=== PATIENT | female | born 1990 | race Caucasian/White ===

== ENCOUNTER 2022-10-24 14:07 | Emergency (ER) | payer BC ==
[2022-10-24] MEDS ORDERED: Sodium Chloride 0.9% 10 ML Syringe FLUSH PRN (14:14)
[2022-10-24 14:39] LABS: BASOPHILS ABSOLUTE AUTO 0.03 K/mm3 (0.01-0.08); BASOPHILS PERCENT AUTO 0.3 % (0.1-1.2); EOSINOPHILS ABSOLUTE AUTO 0.08 K/mm3 (0.04-0.36); EOSINOPHILS PERCENT AUTO 0.8 (0.7-5.8); HEMATOCRIT 40.4 % (34.1-44.9); HEMOGLOBIN 13.1 gm/dl (11.2-15.7); IMMATURE GRAN ABSOLUTE AUTO 0.03 K/mm3 (0.00-0.10); IMMATURE GRAN PERCENT AUTO 0.3 % (<=1.0); LYMPHOCYTES ABSOLUTE AUTO 1.81 K/mm3 (1.18-3.74); LYMPHOCYTES PERCENT AUTO 19.1 % (19.3-51.7); MEAN CORPUSCULAR HEMOGLOBIN 25.5 pg (25.6-32.2); MEAN CORPUSCULAR HGB CONC 32.4 g/dl (32.2-35.5); MEAN CORPUSCULAR VOLUME 78.8 fl (79.4-94.8); MEAN PLATELET VOLUME 9.2 fl (9.4-12.3); MONOCYTES ABSOLUTE AUTO 0.55 K/mm3 (0.24-0.36); MONOCYTES PERCENT AUTO 5.8 % (4.7-12.5); NEUTROPHILS PERCENT AUTO 73.7 % (34.0-71.1); PLATELET COUNT,PLT 479 K/mm3 (182-369); RED BLOOD CELL COUNT 5.13 M/mm3 (3.98-5.22)
[2022-10-24 16:30] LABS: APPEARANCE,URINE CLEAR (Clear); BILIRUBIN,URINE NEGATIVE (Negative); COLOR,URINE YELLOW (Yellow); GLUCOSE,URINE NEGATIVE (Negative); KETONES,URINE NEGATIVE (Negative); LEUKOCYTE ESTERASE,URINE NEGATIVE (Negative); NITRITE,URINE NEGATIVE (Negative); OCCULT BLOOD,URINE NEGATIVE (Negative); PH,URINE 6.5 (5.0-8.0); PROTEIN,URINE NEGATIVE (Negative); UROBILINOGEN,URINE 0.2 (0.2-1.0)
[2022-10-24 16:36] LABS: BACTERIA,URINE FEW /hpf (FEW); MUCUS,URINE FEW /hpf (FEW); RBC,URINE 0-5 /hpf (0-5); SQUAMOUS EPITHELIAL CELLS,UR 0-5 /hpf (0-5); WBC,URINE 0-5 /hpf (0-5)
== END 2022-10-24 16:41 | disposition home or self-care (01) ==
LOC: JD.ED 14:07
DX: O20.9 Hemorrhage in early pregnancy, unspecified (principal); Z79.899 Other long term (current) drug therapy; Z88.5 Allergy status to narcotic agent; Z88.2 Allergy status to sulfonamides; Z3A.08 8 weeks gestation of pregnancy
CPT/HCPCS: 36415; 76817; 76817-26; 81001; 84702; 85025; 86900; 86901; 99283; 99284

== ENCOUNTER 2024-06-11 19:58 | Inpatient (IN) | payer BC ==
[2024-06-11] MEDS ORDERED: Ondansetron 4 MG/2 ML SDV IVPUSH PRN (20:51)
[2024-06-11] MEDS ORDERED: Sodium Chloride 0.9% 10 ML Syringe FLUSH PRN (20:51)
[2024-06-11] MEDS ORDERED: Lidocaine 1% 50 ML MDV INJECT PRN ×2 (20:51→20:54)
[2024-06-11] MEDS ORDERED: Calcium Carbonate 500 MG Tab.Chew PO PRN (20:51)
[2024-06-11 21:10] LABS: BASOPHILS PERCENT AUTO 0.2 % (0.0-1.0); EOSINOPHILS ABSOLUTE AUTO 0.1 K/mm3 (0.0-0.4); EOSINOPHILS PERCENT AUTO 0.4 % (0.0-6.0); HEMATOCRIT 38.6 % (37.0-47.0); IMMATURE GRAN PERCENT AUTO 0.8 % (0.0-0.4); LYMPHOCYTES ABSOLUTE AUTO 2.5 K/mm3 (1.0-4.8); LYMPHOCYTES PERCENT AUTO 20.4 % (24.0-44.0); MEAN CORPUSCULAR HEMOGLOBIN 26.6 pg (28.0-32.0); MEAN CORPUSCULAR HGB CONC 32.6 g/dl (32.0-36.0); MEAN CORPUSCULAR VOLUME 81.6 fl (83.0-99.0); MEAN PLATELET VOLUME 10.3 fl (9.4-12.3); MONOCYTES PERCENT AUTO 8.1 % (0.0-8.0); NEUTROPHILS ABSOLUTE AUTO 8.6 K/mm3 (1.8-7.7); NEUTROPHILS PERCENT AUTO 70.1 % (41.0-71.0); PLATELET COUNT,PLT 281 K/mm3 (150-400); RED BLOOD CELL COUNT 4.73 M/mm3 (4.10-5.30); WHITE BLOOD CELL COUNT,WBC 12.28 K/mm3 (3.9-11.3)
[2024-06-11 21:11] LABS: HEMOGLOBIN 12.6 gm/dl (12.0-16.0)
[2024-06-12] MEDS: Nalbuphine 10 MG/1 ML Vial IVPUSH PRN (01:05)
[2024-06-12] MEDS: Lactated Ringers 1,000 ML IV SCH ×2 (01:07→14:53)
[2024-06-12] MEDS ORDERED: diphenhydrAMINE 50 MG/ML SDV IVPUSH PRN (02:52)
[2024-06-12] MEDS ORDERED: ePHEDrine 50 MG/ML SDV IVPUSH PRN (02:52)
[2024-06-12] MEDS: fentaNYL 100 MCG/2 ML SDV EPIDUR PRN (03:46)
[2024-06-12] MEDS: Bupivacaine/fentaNYL/NS 100 ML Bag EPIDUR PRN (03:46)
[2024-06-12] MEDS: Oxytocin/0.9 % Sodium Chloride 30 UNIT/500 ML BAG IV SCH ×2 (05:38→17:44)
[2024-06-12] MEDS: Sodium Chloride 0.9% 10 ML Syringe FLUSH SCH (09:28)
[2024-06-12] MEDS: Labetalol 100 MG/20 ML MDV IVPUSH ONE ×2 (14:11→15:05)
[2024-06-12] MEDS: Magnesium Sulf/Wat 2 GM/50 mL 2 GM in Premix Bag 1 BAG IV ONE (14:42)
[2024-06-12 14:45] LABS: HEMATOCRIT 41.6 % (37.0-47.0); HEMOGLOBIN 13.3 gm/dl (12.0-16.0); MEAN CORPUSCULAR HEMOGLOBIN 26.4 pg (28.0-32.0); MEAN CORPUSCULAR VOLUME 82.7 fl (83.0-99.0); MEAN PLATELET VOLUME 10.4 fl (9.4-12.3); PLATELET COUNT,PLT 299 K/mm3 (150-400); RED BLOOD CELL COUNT 5.03 M/mm3 (4.10-5.30); WHITE BLOOD CELL COUNT,WBC 23.66 K/mm3 (3.9-11.3)
[2024-06-12] MEDS: Magnesium Sulf/Wat 4 GM/50 mL 4 GM in Premix Bag 1 BAG IV ONE (14:51)
[2024-06-12 15:05] LABS: A/G RATIO 0.7 (1-2); ALBUMIN 2.8 g/dl (3.4-5.0); ANION GAP 16.2 (5-15); BILIRUBIN TOTAL 0.3 mg/dL (0.2-1.0); CALCIUM 9.1 mg/dL (8.5-10.1); CREATININE 0.8 mg/dL (0.55-1.02); EST CRCL DRUG DOSING (CG) 80.59 mL/min; POTASSIUM,K 4.2 mEq/L (3.5-5.1); PROTEIN TOTAL,TP 7.1 g/dl (6.4-8.2)
[2024-06-12] MEDS: Magnesium Sulf/Wat 40GM/1000mL 40 GM/1,000 ML BAG IV SCH (15:16)
[2024-06-12] MEDS: Magnesium Sulf/Wat 4 GM/50 mL 50 ML ONE (17:23)
[2024-06-12] MEDS: Misoprostol 200 MCG Tab ONE (17:51)
[2024-06-12] MEDS ORDERED: Witch Hazel Medicated Pads 40/Jar TOP PRN (19:24)
[2024-06-12] MEDS ORDERED: Calcium Gluconate 10% 1 GM/10 ML SDV IV PRN (19:24)
[2024-06-12] MEDS ORDERED: Ibuprofen 600 MG Tab PO SCH (19:24)
[2024-06-12] MEDS ORDERED: Benzocaine/Menthol 20%-0.5% Spray 78 GM Cannister TOP PRN (19:24)
[2024-06-12] MEDS ORDERED: Docusate Sodium 100 MG Cap PO PRN (19:24)
[2024-06-12] MEDS ORDERED: Acetaminophen 325 MG Tab PO PRN (19:24)
[2024-06-12 20:09] LABS: BASOPHILS PERCENT AUTO 0.1 % (0.0-1.0); HEMATOCRIT 35.2 % (37.0-47.0); IMMATURE GRAN PERCENT AUTO 0.9 % (0.0-0.4); LYMPHOCYTES ABSOLUTE AUTO 0.8 K/mm3 (1.0-4.8); LYMPHOCYTES PERCENT AUTO 2.4 % (24.0-44.0); MEAN CORPUSCULAR HEMOGLOBIN 26.9 pg (28.0-32.0); MEAN CORPUSCULAR HGB CONC 32.7 g/dl (32.0-36.0); MEAN CORPUSCULAR VOLUME 82.4 fl (83.0-99.0); MEAN PLATELET VOLUME 10.5 fl (9.4-12.3); MONOCYTES ABSOLUTE AUTO 1.9 K/mm3 (0.0-0.8); MONOCYTES PERCENT AUTO 5.9 % (0.0-8.0); NEUTROPHILS ABSOLUTE AUTO 29.7 K/mm3 (1.8-7.7); NEUTROPHILS PERCENT AUTO 90.7 % (41.0-71.0); PLATELET COUNT,PLT 310 K/mm3 (150-400); RED BLOOD CELL COUNT 4.27 M/mm3 (4.10-5.30); WHITE BLOOD CELL COUNT,WBC 32.75 K/mm3 (3.9-11.3)
[2024-06-12 20:11] LABS: HEMOGLOBIN 11.5 gm/dl (12.0-16.0)
[2024-06-12 20:40] LABS: PTT,PARTIAL THROMBOPLSTIN TIME 22.9 SECONDS (21.7-31.4)
[2024-06-12 20:48] LABS: SLIDE REVIEW ABNORMAL SMEAR
[2024-06-12 20:50] LABS: FIBRINOGEN > 450 mg/dL (187-446)
[2024-06-12] MEDS: Ibuprofen 600 MG Tab PO SCH (21:42)
[2024-06-13 05:46] LABS: HEMATOCRIT 29.6 % (37.0-47.0); MEAN CORPUSCULAR HEMOGLOBIN 26.7 pg (28.0-32.0); MEAN CORPUSCULAR HGB CONC 32.1 g/dl (32.0-36.0); MEAN CORPUSCULAR VOLUME 83.1 fl (83.0-99.0); MEAN PLATELET VOLUME 10.5 fl (9.4-12.3); PLATELET COUNT,PLT 281 K/mm3 (150-400); RED BLOOD CELL COUNT 3.56 M/mm3 (4.10-5.30); WHITE BLOOD CELL COUNT,WBC 22.01 K/mm3 (3.9-11.3)
[2024-06-13 05:47] LABS: HEMOGLOBIN 9.5 gm/dl (12.0-16.0)
[2024-06-13] MEDS: Lactated Ringers 1,000 ML IV SCH (06:00)
[2024-06-13] MEDS: Magnesium Sulf/Wat 40GM/1000mL 40 GM/1,000 ML BAG IV SCH (12:19)
[2024-06-14 05:28] LABS: HEMATOCRIT 27.6 % (37.0-47.0); MEAN CORPUSCULAR HEMOGLOBIN 27.4 pg (28.0-32.0); MEAN CORPUSCULAR HGB CONC 32.6 g/dl (32.0-36.0); MEAN CORPUSCULAR VOLUME 83.9 fl (83.0-99.0); MEAN PLATELET VOLUME 10.5 fl (9.4-12.3); PLATELET COUNT,PLT 281 K/mm3 (150-400); RED BLOOD CELL COUNT 3.29 M/mm3 (4.10-5.30); WHITE BLOOD CELL COUNT,WBC 14.21 K/mm3 (3.9-11.3)
== END 2024-06-14 11:42 | disposition home or self-care (01) | DRG 560 ==
LOC: JD.OBCHECK 19:58 → JD.OB 20:51 → OBSVTOIN 06-12 16:22 → JD.OB 06-12 16:23
PROVIDERS: ADMIT Obstetrics & Gynecology; ATTEND Obstetrics & Gynecology
PROC: 0KQM0ZZ Repair Perineum Muscle, Open Approach (ICD-10-PCS; principal; 2024-06-12)
PROC: 3E0R3BZ Introduction of Anesthetic Agent into Spinal Canal, Percutaneous Approach (ICD-10-PCS; principal; 2024-06-12)
PROC: 10907ZC Drainage of Amniotic Fluid, Therapeutic from Products of Conception, Via Natural or Artificial Opening (ICD-10-PCS; principal; 2024-06-12)
PROC: 10E0XZZ Delivery of Products of Conception, External Approach (ICD-10-PCS; principal; 2024-06-12)
DX: O14.14 Severe pre-eclampsia complicating childbirth (principal); O99.344 Other mental disorders complicating childbirth; O99.214 Obesity complicating childbirth; O99.02 Anemia complicating childbirth; O70.1 Second degree perineal laceration during delivery; F41.9 Anxiety disorder, unspecified; F32.A Depression, unspecified; Z88.2 Allergy status to sulfonamides; Z79.899 Other long term (current) drug therapy; Z37.0 Single live birth; Z98.890 Other specified postprocedural states; Z3A.39 39 weeks gestation of pregnancy; O90.89 Other complications of the puerperium, not elsewhere classified; R33.9 Retention of urine, unspecified
CPT/HCPCS: 36415; 51701; 51702; 59025; 59409; 80053; 85025; 85027; 85384; 85730; 86592; 86850; 86900; 86901; A9270-GY; J1920; J2300; J3010; J3475; J3490; J7120; J7999

== ENCOUNTER 2024-06-15 20:48 | Emergency (ER) | payer BC ==
[2024-06-15] MEDS ORDERED: Sodium Chloride 0.9% 10 ML Syringe FLUSH PRN (21:09)
[2024-06-15 22:02] LABS: BASOPHILS PERCENT AUTO 0.3 % (0.0-1.0); EOSINOPHILS ABSOLUTE AUTO 0.2 K/mm3 (0.0-0.4); EOSINOPHILS PERCENT AUTO 1.6 % (0.0-6.0); HEMATOCRIT 28.7 % (37.0-47.0); HEMOGLOBIN 9.1 gm/dl (12.0-16.0); IMMATURE GRAN ABSOLUTE AUTO 0.19 K/mm3 (0.00-0.05); IMMATURE GRAN PERCENT AUTO 1.6 % (0.0-0.4); LYMPHOCYTES ABSOLUTE AUTO 2.8 K/mm3 (1.0-4.8); LYMPHOCYTES PERCENT AUTO 23.5 % (24.0-44.0); MEAN CORPUSCULAR HEMOGLOBIN 26.9 pg (28.0-32.0); MEAN CORPUSCULAR HGB CONC 31.7 g/dl (32.0-36.0); MEAN CORPUSCULAR VOLUME 84.9 fl (83.0-99.0); MEAN PLATELET VOLUME 9.9 fl (9.4-12.3); MONOCYTES ABSOLUTE AUTO 0.8 K/mm3 (0.0-0.8); MONOCYTES PERCENT AUTO 6.9 % (0.0-8.0); NEUTROPHILS PERCENT AUTO 66.1 % (41.0-71.0); PLATELET COUNT,PLT 322 K/mm3 (150-400); RED BLOOD CELL COUNT 3.38 M/mm3 (4.10-5.30); WHITE BLOOD CELL COUNT,WBC 12.06 K/mm3 (3.9-11.3)
[2024-06-15 22:27] LABS: A/G RATIO 0.7 (1-2); ALANINE AMINOTRANSFERASE,ALT 22 U/L (14-59); ALBUMIN 2.5 g/dl (3.4-5.0); ALKALINE PHOSPHATASE 84 U/L (46-116); ANION GAP 10.1 (5-15); ASPARTATE AMNIOTRANSFERASE,AST 19 U/L (15-37); BILIRUBIN TOTAL 0.1 mg/dL (0.2-1.0); BLOOD UREA NITROGEN,BUN 13 mg/dL (7-18); BUN/CREATININE RATIO 16.3 (14-18); CALCIUM 8.9 mg/dL (8.5-10.1); CARBON DIOXIDE,CO2 29 mEq/L (21-32); CHLORIDE,CL 105 mEq/L (98-107); CREATININE 0.8 mg/dL (0.55-1.02); ESTIMATED GFR 101 mL/min (>60); GLUCOSE RANDOM 75 mg/dL (70-99); POTASSIUM,K 4.1 mEq/L (3.5-5.1); PROTEIN TOTAL,TP 6.3 g/dl (6.4-8.2); SODIUM,NA 140 mEq/L (136-145)
== END 2024-06-15 22:55 | disposition home or self-care (01) ==
LOC: JD.ED 20:48
DX: O72.1 Other immediate postpartum hemorrhage (principal); O99.03 Anemia complicating the puerperium; D64.9 Anemia, unspecified; Z88.5 Allergy status to narcotic agent; Z88.2 Allergy status to sulfonamides; Z79.899 Other long term (current) drug therapy
CPT/HCPCS: 36415; 76857; 76857-26; 80053; 85025; 99284

== ENCOUNTER 2024-12-08 07:00 | Day surgery (SDC) | payer BC ==
[~2024-12-08 07:00] MED LIST: Sodium Chloride 0.9% 10 ML Syringe FLUSH PRN; Sodium Chloride 0.9% 10 ML Syringe FLUSH SCH
[2024-12-08] MEDS: Lactated Ringers 1,000 ML IV SCH (07:15)
[2024-12-08] MEDS ORDERED: fentaNYL 100 MCG/2 ML SDV ONE (07:21)
[2024-12-08] MEDS ORDERED: Lidocaine 1% 4 ML ONE (07:21)
[2024-12-08] MEDS ORDERED: propofoL 500 MG/50 ML 50 ML ONE (07:21)
[2024-12-08] MEDS ORDERED: fentaNYL 100 MCG/2 ML SDV IVPUSH PRN (07:46)
[2024-12-08] MEDS ORDERED: Acetaminophen Soln 650 MG/20.3 ML UD Cup PO ONE (07:46)
[2024-12-08] MEDS ORDERED: Ondansetron 4 MG/2 ML SDV IVPUSH PRN (07:46)
[2024-12-08] MEDS ORDERED: Naloxone 0.4 MG/ML SDV IVPUSH PRN (07:46)
[2024-12-08] MEDS ORDERED: Midazolam 1 MG/ML 2 ML SDV ONE (07:54)
[2024-12-08] MEDS ORDERED: Ondansetron 4 MG/2 ML SDV ONE (08:07)
[2024-12-08] MEDS: EPINEPHrine 1 MG/ML SDV ONE (10:17)
== END 2024-12-08 09:20 | disposition home or self-care (01) ==
LOC: JD.SDS 07:00
PROVIDERS: ATTEND Podiatrist Foot & Ankle Surgery
DX: B07.0 Plantar wart (principal); M79.672 Pain in left foot; E66.9 Obesity, unspecified; Z88.2 Allergy status to sulfonamides; Z88.5 Allergy status to narcotic agent; Z68.30 Body mass index [BMI] 30.0-30.9, adult; Z79.899 Other long term (current) drug therapy
CPT/HCPCS: 81025; J0169; J0665; J0690; J2003; J2250; J2405; J2704; J3010; J7120